=== PATIENT | male | born 1975 ===

== ENCOUNTER 2020-09-13 12:23 | Outpatient (CLI) | payer OTHER ==
--- NOTE | 2020-09-13 14:33 | ULT ---
VENOUS DOPPLER ULTRASOUND OF THE RIGHT LOWER EXTREMITY: Date: 09/13/2020 HISTORY: Right lower extremity edema. TECHNIQUE: Edwards scale ultrasound with color flow and spectral Doppler imaging of the deep venous system of the r ight lower extremity performed. FINDINGS: There is good flow, compression, and augmentation noted in the right common femoral, femoral, deep fe moral, popliteal, posterior tibial, and greater saphenous veins. IMPRESSION: No evidence of deep venous thrombosis in the right lower extremity. POS: AH
== END 2020-09-13 12:24 | disposition home or self-care (01) ==
LOC: BICULT 12:23
PROVIDERS: ATTEND Family Medicine
DX: M79.89 Other specified soft tissue disorders (principal)